=== PATIENT | male | born 1990 | race American Indian/Alaskan Native ===

== ENCOUNTER 2017-07-26 10:32 | Emergency (ER) | payer OTHER ==
[2017-07-26 10:43] VITALS: O2SAT 98
[2017-07-26 11:39] LABS: BASO % 0.6 % (0.0-2.0); EOS # 0.1 K/uL (0.0-0.7); EOS % 1.8 % (0.0-4.0); HEMATOCRIT 45.2 % (35.0-51.0); LYMPH # 1.4 K/uL (1.0-4.3); LYMPH % 37.4 % (20.0-40.0); MEAN CORPUSCULAR HEMOGLOBIN 28.9 pg (27.0-31.0); MEAN CORPUSCULAR HGB CONC 33.2 g/dL (33.0-37.0); MEAN PLATELET VOLUME 9.8 fL (7.2-11.7); MONO # 0.3 K/uL (0.0-0.8); MONO % 9.1 % (0.0-10.0); NRBC % 0.2 % (0.0-2.0); RED CELL DISTRIBUTION WIDTH 13.6 % (11.5-14.5); WHITE BLOOD COUNT 3.8 K/uL (4.8-10.8)
[2017-07-26 11:43] LABS: ALB/GLOB RATIO 1.5 (1.0-2.1); ALKALINE PHOSPHATASE 68 U/L (38-126); ALT/SGPT 51 U/L (21-72); AST/SGOT 25 U/L (17-59); BILIRUBIN,TOTAL 0.6 mg/dL (0.2-1.3); BLOOD UREA NITROGEN 14 mg/dL (9-20); CALCIUM 8.4 mg/dl (8.6-10.4); CARBON DIOXIDE 27 mmol/L (22-30); CHLORIDE 104 mmol/L (98-107); CHOLESTEROL 162 mg/dL (0-199); GFR AFRICAN-AMERICAN > 60; GLUCOSE,RANDOM 112 mg/dL (75-110); POTASSIUM 3.9 mmol/L (3.6-5.2); SODIUM 138 mmol/L (132-148); TOTAL PROTEIN 6.7 g/dL (6.3-8.3)
--- NOTE | 2017-07-26 11:52 | C.PDOC ---
History Of Present Illness <Thuy Olivo - Last Filed: 07/26/17 14:56> <GarrettSandi marino - Last Filed: 07/26/17 15:26> 27 year old male presents to the ED for evaluation of sharp right sided chest pain for the last 2 weeks. Patient reports he feels his heart racing along with dizziness that usually lasts for at most one minute. Patient was seen at [facility] in May for similar symptoms, with normal results in imaging and his labs. Patient reports following with shove up Dr Bryant who did a stress test on him which came back normal. Patient reports he quit smoking in March. Patient denies abdominal pain, nausea, vomit, diarrhea, constipation, headache, cough, SOB. Family history Father with CAD and stents, Mother has DM. (GarrettSandi Constance) <Thuy Olivo - Last Filed: 07/26/17 14:56> History Per: Patient History/Exam Limitations: no limitations Onset/Duration Of Symptoms: Days (), Intermittent Episodes (since may ) Current Symptoms Are (Timing): Still Present Quality: Sharp Modifying Factors: None Recent travel outside of the [place]: No Additional History Per: Patient <Sandi Garrett - Last Filed: 07/26/17 15:26> Time Seen by Provider: 07/26/17 10:51 Chief Complaint (Nursing): Chest Pain Past Medical History Reviewed: Historical Data, Nursing Documentation, Vital Signs - Medical History PMH: No Chronic Diseases Surgical History: No Surg Hx Family History: States: CAD (father with stents ), Diabetes (Mother ) - Social History Hx Alcohol Use: No Hx Substance Use: No <Sandi Garrett - Last Filed: 07/26/17 15:26> Vital Signs: Last Vital Signs Temp 98.2 F 07/26/17 13:58 Pulse 68 07/26/17 13:58 Resp 16 07/26/17 13:58 BP 121/70 07/26/17 13:58 Pulse Ox 98 07/26/17 15:26 Review Of Systems Constitutional: Negative for: Fever, Chills Eyes: Negative for: Vision Change Cardiovascular: Positive for: Chest Pain, Palpitations Respiratory: Negative for: Cough, Shortness of Breath Gastrointestinal: Negative for: Nausea, Vomiting, Abdominal Pain Musculoskeletal: Negative for: Back Pain Skin: Negative for: Rash Neurological: Negative for: Weakness, Numbness, Headache <Sandi Garrett - Last Filed: 07/26/17 15:26> Physical Exam - Physical Exam Appears: Non-toxic, No Acute Distress Skin: Normal Color, Warm, Dry Head: Atraumatic, Normacephalic Eye(s): bilateral: Normal Inspection, EOMI Nose: No Discharge Oral Mucosa: Moist Neck: Normal ROM, Supple Chest: Symmetrical, No Deformity, No Tenderness, No Subcutaneous Emphysema Cardiovascular: Rhythm Regular, No Murmur Respiratory: Normal Breath Sounds, No Rales, No Rhonchi, No Wheezing Gastrointestinal/Abdominal: Soft, No Tenderness, No Distention, No Rebound Extremity: Normal ROM, No Pedal Edema, No Calf Tenderness, No Swelling Neurological/Psych: Oriented x3, Normal Speech, Other (No focal deficits) Gait: Steady <Sandi Garrett - Last Filed: 07/26/17 15:26> ED Course And Treatment - Laboratory Results Result Diagrams: 07/26/17 11:27 07/26/17 11:27 <Thuy Olivo - Last Filed: 07/26/17 14:56> - Laboratory Results Result Diagrams: 07/26/17 11:27 07/26/17 11:27 Lab Interpretation: No Acute Changes ECG: Interpreted By Me, Viewed By Me ECG Rhythm: Sinus Rhythm ECG Interpretation: No Acute Changes Interpretation Of ECG: NS at 71 bpm with moderate voltage for LVH no ischemic changes, normal axis. Rate From EC O2 Sat by Pulse Oximetry: 98 (On RA) Pulse Ox Interpretation: Normal - Radiology CXR: Interpreted by Me, Viewed By Me CXR Interpretation: Yes: No Acute Disease, Other (No focal consolidation, significant pleural effusion, or definite pneumothorax identified.). No: Infiltrates - CT Scan/US CT head Other Rad Studies (CT/US): Interpreted By Me, Read By Radiologist, Radiology Report Reviewed CT/US Interpretation: PROCEDURE: CT HEAD WITHOUT CONTRAST. HISTORY: dizziness , chest pain x 2 weeks. COMPARISON: None available. TECHNIQUE: Axial computed tomography images were obtained through the head/brain without intravenous contrast. Radiation dose: Total exam DLP = 1116.23 mGy-cm. This CT exam was performed using one or more of the following dose reduction techniques: Automated exposure control, adjustment of the mA and/or kV according to patient size, and/or use of iterative reconstruction technique. FINDINGS: HEMORRHAGE: No intracranial hemorrhage. BRAIN: No mass effect or edema. No atrophy or chronic microvascular ischemic changes.Please note that MRI with diffusion imaging is more sensitive in the detection of acute ischemic event. VENTRICLES: No hydrocephalus. CALVARIUM: Unremarkable. PARANASAL SINUSES: Unremarkable as visualized. No significant inflammatory changes. MASTOID AIR CELLS: Under aeration of the left external auditory canal. Otherwise unremarkable. OTHER FINDINGS: Partial opacification bilateral external auditory canals, likely cerumen. IMPRESSION: No acute intracranial pathology identified. Additional incidental findings as above. <Sandi Garrett - Last Filed: 07/26/17 15:26> Medical Decision Making <Thuy Olivo - Last Filed: 07/26/17 14:56> <Sandi Garrett - Last Filed: 07/26/17 15:26> Medical Decision Making: Impression: chest pain x 2 weeks and episodic for 3 months Plan: * CT head * EKG * Blood work * Toradol 30 mg IVP * UA Prior Visits: Notes and results from previous visits were reviewed. Patient had normal stress test on 07/19/17 Progress Notes: Labs reviewed and unremarkable. normal H/h and electrolytes. normal lipid panel and thyroid function. negative cardiac markers. CXR shows no active disease CT head without any significant findings Based on negative findings for cardiac evaluation after 2 week history of chest pain, there is no need for hospitalization at this time. Re-evaluation Time: 1330 Patient feels better. Patient is resting comfortably in no acute distress. Discussed results with patient and provide copy of lab and CXR and CT reports. Patient expresses understanding. Counseling was provided regarding the diagnosis and prognosis. All questions answered and there is agreement with the plan to discharge home with instructions to follow up. Patient stable for discharge. Return if symptoms persist or worsen. Dispo: Discharge home. Patient was recommended to follow up with PCP Dr Kearns and Shackler. Return to ED if symptoms worsen. (Sandi Garrett) Disposition <Thuy Olivo - Last Filed: 07/26/17 14:56> Counseled Patient/Family Regarding: Studies Performed, Diagnosis, Need For Followup - Disposition Disposition Time: 13:45 - POA Present On Arrival: None <Sandi Garrett - Last Filed: 07/26/17 15:26> - Disposition Referrals: Elida Bryant MD [Staff Provider] - Ryan Kearns MD [Staff Provider] - Disposition: HOME/ ROUTINE Condition: STABLE Additional Instructions: Your labs, EKG, CXR and Ct head were all normal Please follow up outpatient with your primary doctor and with cardiology for further evaluation. Take Aspirin or Ibuprofen for any pain you may have Return to the emergency department at any time if symptoms persist or worsen. Instructions: Palpitations (ED), Noncardiac Chest Pain (ED) Forms: [employer] (Citizen Of [place]) - Clinical Impression Clinical Impression: Chest discomfort, Palpitations, Dizziness <Thuy Olivo - Last Filed: 07/26/17 14:56> - PA / HEALTH ASSESSMENT AND TREATMENT TEACHER / Resident Statement MD/DO has reviewed & agrees with the documentation as recorded. - Scribe Statement The provider has reviewed the documentation as recorded by the Scribe <Sandi Garrett - Last Filed: 07/26/17 15:26> - Scribe Statement Russlel Jose All medical record entries made by the Scribe were at my direction and personally dictated by me. I have reviewed the chart and agree that the record accurately reflects my personal performance of the history, physical exam, medical decision making, and the department course for this patient. I have also personally directed, reviewed, and agree with the discharge instructions and disposition. (Sandi Garrett)
[2017-07-26 12:14] LABS: THYROID STIMULATING HORMONE 1.02 mIU/L (0.46-4.68)
[2017-07-26 12:28] LABS: RBC URINE 1 /hpf (0-3); URINE BILIRUBIN NEGATIVE (NEGATIVE); URINE BLOOD NEGATIVE (NEGATIVE); URINE COLOR Yellow (YELLOW); URINE GLUCOSE (UA) NORMAL (Normal); URINE KETONE TRACE mg/dL (NEGATIVE); URINE LEUKOCYTE ESTERASE NEG Leu/uL (Negative); URINE PROTEIN NEGATIVE (NEGATIVE); URINE UROBILINOGEN NORMAL mg/dL (0.2-1.0); WBC URINE 1 /hpf (0-5)
--- NOTE | 2017-07-26 13:09 | RAD ---
HISTORY: chest pain COMPARISON: None available. TECHNIQUE: Chest PA and lateral FINDINGS: LUNGS: No focal consolidation. Please note that chest x-ray has limited sensitivity for the detection of pulmonary masses. PLEURA: No significant pleural effusion identified. No definite pneumothorax . CARDIOVASCULAR: The cardiomediastinal silhouette appears within normal limits of size. OSSEOUS STRUCTURES: No acute osseous abnormality identified. VISUALIZED UPPER ABDOMEN: Unremarkable. OTHER FINDINGS: None. IMPRESSION: No focal consolidation, significant pleural effusion, or definite pneumothorax identified.
--- NOTE | 2017-07-26 13:39 | CT ---
PROCEDURE: CT HEAD WITHOUT CONTRAST. HISTORY: dizziness, chest pain x 2 weeks COMPARISON: None available. TECHNIQUE: Axial computed tomography images were obtained through the head/brain without intravenous contrast. Radiation dose: Total exam DLP = 1116.23 mGy-cm. This CT exam was performed using one or more of the following dose reduction techniques: Automated exposure control, adjustment of the mA and/or kV according to patient size, and/or use of iterative reconstruction technique. FINDINGS: HEMORRHAGE: No intracranial hemorrhage. BRAIN: No mass effect or edema. No atrophy or chronic microvascular ischemic changes.Please note that MRI with diffusion imaging is more sensitive in the detection of acute ischemic event. VENTRICLES: No hydrocephalus. CALVARIUM: Unremarkable. PARANASAL SINUSES: Unremarkable as visualized. No significant inflammatory changes. MASTOID AIR CELLS: Under aeration of the left external auditory canal. Otherwise unremarkable. OTHER FINDINGS: Partial opacification bilateral external auditory canals, likely cerumen. IMPRESSION: No acute intracranial pathology identified. Additional incidental findings as above.
[2017-07-26 13:59] VITALS: BP 121/70; PULSE 68; RESP 16; TEMP 98.2
--- NOTE | 2017-07-29 09:44 | CARD ---
APPROVED REPORT EKG Measurement Heart [id number] <Conclusion> Normal sinus rhythm Moderate voltage criteria for LVH, may be normal variant Borderline ECG
== END 2017-07-26 14:13 | disposition home or self-care (01) ==
LOC: C.ER 10:32
DX: R42 Dizziness and giddiness (principal); R00.2 Palpitations; R07.89 Other chest pain